=== PATIENT | female | born 1990 | race Caucasian/White ===

== ENCOUNTER 2018-07-03 16:26 | Outpatient (REF) | payer BC, SELFPAY ==
--- NOTE | 2018-07-03 16:00 | PAPFT_PTH ---
PATIENT: Ninoska Salgado LOC: [facility] U#:[id number] AGE/SX: 28/F ROOM: RE07/03/[address]: Nydia Amador : 1990 BED: DIS: 07/03/2018 SPEC #: [id number] RECD: 07/04/18 13:08 STATUS: JILL JUDD #: [id number] BRUNO: 07/03/18 16:[address]: Nydia Amador DEPT: [facility] Cytology RECD BY: Piedad Perez Tissues: 1 - CX/ENDOCX FOR PAP SMEARS Procedures: PAP THIN PREP/[facility] Screening HPV DNA PROBE Comments: [id number] (CHLAMYDIA/GC)
[2018-07-07 09:06] LABS: HIV-1/2 Ag & Ab Screen Negative (NEGAT)
[2018-07-07 13:36] LABS: Chlamydia Result Negative; GC Result Negative; Specimen Description SEE COMMENTS
[2018-07-07 14:14] LABS: Syphilis Serology (RPR) Negative (Negative)
== END 2018-07-03 16:46 ==
LOC: NCHCN 16:26
PROVIDERS: PCP Nurse Practitioner Family; Visit Provider Nurse Practitioner Family
DX: Z12.4 Encounter for screening for malignant neoplasm of cervix (principal); Z11.51 Encounter for screening for human papillomavirus (HPV); Z11.3 Encounter for screening for infections with a predominantly sexual mode of transmission; Z11.4 Encounter for screening for human immunodeficiency virus [HIV]
CPT/HCPCS: 87389; 87491; 87591; 88142; 86592; 87624

== ENCOUNTER 2018-11-14 16:17 | Outpatient (REF) | payer BC, SELFPAY | END 2018-11-14 16:37 | LOC: NCHCN 16:17 | PROVIDERS: PCP Nurse Practitioner Family; Visit Provider Nurse Practitioner Family | DX: R35.0 Frequency of micturition (principal) | CPT/HCPCS: 87086 ==

== ENCOUNTER 2018-12-11 10:12 | Outpatient (REF) | payer BC, SELFPAY ==
[2018-12-12 12:31] LABS: Chlamydia Result Negative; GC Result Negative; Specimen Description CERVIX
== END 2018-12-11 10:32 ==
LOC: NCHCN 10:12
PROVIDERS: PCP Nurse Practitioner Family; Visit Provider Nurse Practitioner Family
DX: R35.0 Frequency of micturition (principal); Z11.3 Encounter for screening for infections with a predominantly sexual mode of transmission
CPT/HCPCS: 87491; 87591; 87086; 87480; 87510; 87660

== ENCOUNTER 2022-01-04 15:04 | Outpatient (REF) | payer BC, SELFPAY ==
--- NOTE | 2022-01-04 13:45 | PAPFT_PTH ---
PATIENT: Ninoska Salgado LOC: [facility] U#:[id number] AGE/SX: 31/F ROOM: RE01/04/[address]: Luiza Ruiz : 1990 BED: DIS: 01/04/2022 SPEC #: [id number] RECD: 01/04/22 18:40 STATUS: DORIANBernabe REQ #: [id number] BRUNO: 01/04/22 13:[address]: Luiza Ruiz DEPT: [facility] Cytology RECD BY: Piedad Perez ENTERED: 01/04/22 18:40 SP TYPE: PAPFT OTHR DR: Nydia Amador Tissues: 1 - CX/ENDOCX FOR PAP SMEARS Procedures: PAP THIN PREP/[facility] Screening HPV DNA PROBE Comments: [id number] (CHLAMYDIA/GC)
[2022-01-05 14:25] LABS: Chlamydia Result Negative (Negative); GC Result Negative (Negative)
== END 2022-01-04 15:05 | disposition home or self-care (01) ==
LOC: NCHCN 15:04
PROVIDERS: PCP Nurse Practitioner Family; Visit Provider Nurse Practitioner Family
DX: Z00.00 Encounter for general adult medical examination without abnormal findings (principal); Z12.4 Encounter for screening for malignant neoplasm of cervix
CPT/HCPCS: 87491; 87591; 88142; 87624

== ENCOUNTER 2025-01-22 16:34 | Outpatient (REF) | payer BC, SELFPAY ==
--- NOTE | 2025-01-22 14:45 | PAPFT_PTH ---
PATIENT: Ninosak Salgado LOC: [facility] U#:[id number] AGE/SX: 34/F ROOM: RE01/22/[address]: Luiza Ruiz : 1990 BED: DIS: 01/22/2025 SPEC #: [id number] RECD: 01/25/25 13:17 STATUS: JILL REFaye #: [id number] BRUNO: 01/22/25 14:[address]: Luiza Ruiz DEPT: [facility] Cytology RECD BY: Piedad Perez ENTERED: 01/25/25 13:17 SP TYPE: PAPFT OTHR DR: Nydia Amador Tissues: 1 - CX/ENDOCX FOR PAP SMEARS Procedures: PAP THIN PREP/[facility] Screening HPV DNA PROBE Comments: [id number] (HPV 16 & 18/45) (CHLAMYDIA/GC)
[2025-01-22 20:46] LABS: HCT 39.2 % (36.0-46.0); HGB 13.6 g/dL (11.2-15.7); MCH 30.0 pg (27.0-33.0); MCHC 34.7 % (32.0-36.0); MCV 86 fL (80-95); MPV 10.4 fL (8.0-11.0); Platelet Count 305 10^3/uL (130-400); RBC 4.54 10^6/uL (3.93-5.22); RDW 11.9 % (11.7-14.6); RDW-SD 37.8 fL; WBC 7.62 10^3/uL (4.4-10.8)
[2025-01-22 21:06] LABS: ALT 17 U/L (14-59); AST 15 U/L (15-37); Albumin 4.3 g/dL (3.4-5.0); Alkaline Phosphatase 47 U/L (46-116); Anion Gap 8.7 mmol/L (3-11); BUN 12 mg/dL (7-18); Bilirubin, Total 0.7 mg/dL (0.2-1.0); CO2 28.3 mmol/L (21.0-32.0); Calcium 9.2 mg/dL (8.5-10.1); Calculated LDL 96 mg/dL (<100); Chloride 101 mmol/L (98-107); Cholesterol 177 mg/dL (<200); Estimated GFR 117.04 (mL/min/1.73m2); Glucose 94 mg/dL (74-106); HDL Cholesterol 67 mg/dL (>or=50); Potassium 3.7 mmol/L (3.5-5.1); Sodium 138 mmol/L (136-145); TSH (W/Ref FT4) 3.29 uIU/mL (0.36-3.74); Total Protein 7.5 g/dL (6.4-8.2); Triglyceride 72 mg/dL (<150)
[2025-01-25 09:21] LABS: HIV-1/2 Ag & Ab Screen Negative (Negative)
[2025-01-25 10:03] LABS: Hepatitis C Ab w Rflx HCV PCR Negative (Negative)
[2025-01-25 10:30] LABS: Syphilis Serology (RPR) Negative (Negative)
[2025-01-26 12:54] LABS: Chlamydia Result Negative (Negative); GC Result Negative (Negative)
== END 2025-01-22 16:35 | disposition home or self-care (01) ==
LOC: NCHCN 16:34
PROVIDERS: PCP Nurse Practitioner Family; Visit Provider Nurse Practitioner Family
DX: Z12.4 Encounter for screening for malignant neoplasm of cervix (principal); Z00.00 Encounter for general adult medical examination without abnormal findings; Z11.3 Encounter for screening for infections with a predominantly sexual mode of transmission; E04.1 Nontoxic single thyroid nodule; Z01.419 Encounter for gynecological examination (general) (routine) without abnormal findings
CPT/HCPCS: 80053; 80061; 85027; 86803; 87389; 87491; 87591; 88142; 84443; 86592; 87624